=== PATIENT | male | born 1950 | race Caucasian/White ===

== ENCOUNTER 2018-04-24 13:43 | Outpatient (RCR) | payer MEDICARE, OTHER ==
[2018-01-30] MEDS: HEPARIN FLSH (PORT) 500 UN/5ML IVP PRN (11:19)
[2018-02-21 14:09] VITALS: BP 134/78
[2018-02-21 15:04] LABS: PLATELET COUNT, AUTOMATED 206 K/uL (150-450)
--- NOTE | 2018-02-22 17:03 | ONCOLOGY FOLLOW UP NOTE ---
EVENT DATE: February 21, 2018 CHIEF COMPLAINT/REASON FOR VISIT Mr. 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 He is here for followup. HISTORY OF PRESENT ILLNESS Alex returns. We initially treated him with full-dose chemotherapy with 5FU and cisplatin, followed by weekly cisplatin with twice daily radiation. 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 He takes six to eight tablets of salt daily, and this seems to help him quite a bit. We treated all of his metastatic lesions in the spine with radiation therapy as well. This was an aggressive curative treatment approach for technically stage IV disease, but he remains in complete remission, and we are hopeful that we have cured him, although it is very difficult to give him an estimation of his prognosis. We continue to get an MRI of the brain and sinuses every six months and can transition from a PET scan to CT scan of the chest now that it has been two years. I would like to get an imaging every six months, however, through year five given his high risk for relapse. No new symptoms. No fevers, chills, signs of infection, any concerning lumps or bumps, or other issues today. PAST MEDICAL/SURGICAL HISTORY No chronic medical conditions. He had a benign testicular growth removed in 1973. MEDICATIONS 1. Flomax 0.4 mg daily. 2. Finasteride 1 mg daily. 3. Vitamin B6 at 25 mg daily. 4. Calcium supplement. 5. Salt tablets 8 tablets daily for SIADH. MEDICATION ALLERGIES No known drug allergies. SOCIAL HISTORY The patient is and has presented with his today. FAMILY HISTORY Mother with breast cancer at age 77. REVIEW OF SYSTEMS CONSTITUTIONAL: No fever, chills, significant weight change. HEENT: No headache, visual changes, or sinus issues. CARDIOVASCULAR: No chest pain, dyspnea on exertion, or edema. RESPIRATORY: No shortness of breath, wheeze, or cough. GASTROINTESTINAL: No nausea or vomiting. GENITOURINARY: No dysuria or hematuria. He does have BPH. PSYCHIATRIC: No anxiety or depression. MUSCULOSKELETAL: No weakness or joint pain. IMMUNOLOGIC: No history of frequent infections. LYMPHATIC: No evidence of any lumps or bumps. SKIN: No concerning bruises or rashes. Remainder of 14 review of systems otherwise negative. PHYSICAL EXAMINATION VITAL SIGNS: Blood pressure 134/78, pulse 70, respiratory rate 16, temperature 98.2 Fahrenheit, oxygen saturation 93% on room air. Weight 83.1 kg. PAIN: Zero/10 FATIGUE: Zero/10 FALL RISK: Low GENERAL: Stable condition, resting comfortably in the chair. HEENT: Normocephalic, atraumatic. LYMPHATIC: No appreciable cervical, supraclavicular, or axillary adenopathy. ABDOMEN: Soft, nontender. No organomegaly or masses. Remainder of physical exam otherwise unremarkable. IMPRESSION (Import.) PLAN I reviewed the patient's studies from [place]. Mr. Asher is a pleasant, 67- year-old gentleman with the followin. Stage IV nasopharyngeal carcinoma, in complete remission. Plan to get CT of the chest and neck as well as an MRI of the brain and sinuses every six months. He will be due for it this fall, but I am happy to do it here or in [place] depending on where they would like to be at that time. 2. Severe BPH. Recommend he follow with his PCP or Urology. 3. 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 Continue salt tablets. I greatly appreciate the care of his team in [place] and their ongoing surveillance of the patient's survivorship. I answered all of his questions today. Billing Return visit level 4. Total time spent 30 minutes, consulting time 20. MTDD
[2018-03-23 10:03] VITALS: BP 122/78
[2018-03-23] MEDS: LIDOCAINE/SOD BICARB 8.4% SYR ID PRN (10:20)
[2018-03-23] MEDS: HEPARIN FLSH (PORT) 500 UN/5ML IVP PRN (10:20)
[2018-04-13 10:47] VITALS: BP 127/74
[2018-04-13 11:13] LABS: PLATELET COUNT, AUTOMATED 194 K/uL (150-450)
[2018-04-13] MEDS: HEPARIN FLSH (PORT) 500 UN/5ML IVP PRN (11:30)
[2018-04-13] MEDS: LIDOCAINE/SOD BICARB 8.4% SYR ID PRN (11:30)
[2018-04-18] MEDS: HEPARIN FLSH (PORT) 500 UN/5ML IVP PRN (08:20)
--- NOTE | 2018-04-18 10:58 | RADIOLOGY IMAGING REPORT ---
[place] [facility] [place] NAME: Samir Asher : 1950 MR: [id number] V: [id number] EXAM DATE: ORDERING PHYSICIAN: SILVANA COCHRAN TECHNOLOGIST: [place] [facility] [place]ir [place] : 1950 Visit/Account:[id number] Date of Sevice: 04/18/2018 EXAMINATION: Neck CT without and with contrast HISTORY: Malignancy TECHNIQUE: CT was obtained through the neck following IV contrast administration. Sagittal and co brianna reformatted images were generated. 75 mL of IV Isovue-370 injected. One of the following dose optimization techniques was utilized in the performance of this exam: autom ated exposure control; adjustment of the mA and/or kV according to patient size; or use of iterative reconstruction technique. Specific details can be referenced in the facility's radiology CT exam ope rational policy. COMPARISON: May 07, 2015 FINDINGS: Parotid/submandibular and thyroid glands: Punctate dystrophic calcification in the left lower thyroid lobe. Atrophic right parotid gland has decreased in size. Pharyngeal and retropharyngeal soft tissues: Mild new thickening of the right aspect of the epiglotti s, axial image 38. Slightly thickened right nasopharyngeal soft tissue similar to prior. No discret e mass in this area. Mild hypoattenuation in the right retropharyngeal space at the C1 level, axial image 24 is unchanged. Oral cavity and oyster harvester space soft tissues: Normal. Larynx/glottis and airway: Normal. Lymph nodes: Normal. Vessels: Bilateral carotid vasculature atherosclerotic plaque has increased compared to prior. Visualized orbits / brain: No significant finding. Upper chest: Right chest wall port with catheter extending into the superior vena cava. Mild emphyse ma noted. Bones/sinuses/mastoid air cells: No metastatic disease. Multilevel degenerative cervical foraminal n arrowing. No apparent osseous destruction. Sclerosis within the clivus is unchanged. IMPRESSION: 1. Unchanged slight right nasopharyngeal soft tissue thickening without discrete mass in this area. 2. No enlarged or suspicious appearing lymph nodes. 3. Mild new right epiglottis thickening which may reflect posttreatment-related change. Malignant t hickening is felt less likely. Follow-up CT may be warranted to ensure stability. Consider direct i nspection if there is concern for malignant thickening. Report Dictated By: Nadeem North MD at 04/18/2018 10:20 AM Report E-Signed By: Nadeem North MD at 04/18/2018 10:55 AM WSN:[id number]
--- NOTE | 2018-04-18 13:38 | RADIOLOGY IMAGING REPORT ---
FACILITY: [facility] PATIENT NAME: Samir Asher : 1950 MR: [id number] V: [id number] EXAM DATE: ORDERING PHYSICIAN: SILVANA COCHRAN TECHNOLOGIST: Location: [facility] Patient: Samir Asher : 1950 Visit/Account:[id number] Date of Sevice: 04/18/2018 ADDENDUM #1 Dose Lowering Technique One of the following dose optimization techniques was utilized in the performance of this exam: Autom ated exposure control; adjustment of the mA and/or kV according to the patient's size; or use of an i terative reconstruction technique. Specific details can be referenced in the facility's radiology C T exam operational policy. Report Dictated By: Cherise Matthews MD at 04/18/2018 4:34 PM Report E-Signed By: Cherise Matthews MD at 04/18/2018 4:34 PM ORIGINAL REPORT CHEST W W/O CONTRAST History: Nasopharyngeal carcinoma history ADDITIONAL CLINICAL HISTORY: None TECHNIQUE: Contiguous axial images were performed through the chest to the level of the adrenal gla nds with and without IV contrast. Coronal and sagittal reformatting was also performed. Contrast: 75 mL Isovue-370 COMPARISON STUDIES: PET/CT October 10, 2017. Lungs / Pleura: There are mild fibrotic changes pulmonary apices, right greater than left appear si milar to the prior study. Mild emphysematous changes seen throughout the lungs in addition to a bull a in the lateral left lower lobe. This no evidence of pulmonary nodules pulmonary infiltrates or ple ural effusions Mediastinum/nodes: No pathologic-appearing hilar or mediastinal adenopathy is seen Heart and vessels: There are at least moderate coronary artery calcifications present. There is an implanted right IJ port distal tip in superior vena cava. Musculoskeletal / Body wall: There is unilateral gynecomastia on the right that appear similar to t he prior study Spondylotic changes of the visualized cervical and thoracic spine Upper abdomen: Cholelithiasis although no evidence for ductal dilatation. Small hiatal hernia IMPRESSION: No evidence of pathologic-appearing adenopathy or pulmonary nodules Unilateral gynecomastia on the right similar to the prior study Cholelithiasis although no evidence of biliary ductal dilatation Small hiatal hernia Emphysematous changes but the lungs with left lower lobe bullous disease and mild biapical fibrotic c hange Report Dictated By: Cherise Matthews MD at 04/18/2018 12:11 PM Report E-Signed By: Cherise Matthews MD at 04/18/2018 1:34 PM WSN:[email or web address]
[~2018-04-24 13:43] MED LIST: ALTEPLASE RECOMB 2 MG VIAL IVP PRN; AMOX-556 PO; CALC-18 PO; CALC-515 PO; DEME300T9 PO; DEX4 PO; DEXTROSE 5%(*) 100 ML BAG 100 ML IVPB PRN; DUL100/5PT INH; FINA1TAB7 PO; FURO20TA19 PO; IOPAMIDOL 76% 75 ML INFUS BTL 75 ML ONE; LOR1 PO; NS(*) 0.9% 100 ML BAG 100 ML IVPB PRN; NS(*) 0.9% 500 ML BAG 500 ML IV PRN; OMEG500C7 PO; ONDA8TAB94 PO; OXYC-865 PO; POTA20LI10 PO; POTA20TA85 PO; PROC10TA4 PO; PYRI25TA18 PO; SALT TABLETS PO; TAMS0.4C25 PO; VITA-324 PO; WATER FOR INJ,STERILE 20 ML IVP PRN; [UNRECOGNIZED DRUG - CODE] PO
[2018-04-24 13:47] VITALS: BP 128/78
--- NOTE | 2018-04-25 20:21 | [facility] ONCOLOGY NOTE ---
EVENT DATE: April 24, 2018 CHIEF COMPLAINT/REASON FOR VISIT Mr. 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 HISTORY OF PRESENT ILLNESS Alex returns. We initially treated him with full-dose chemotherapy with 5FU and cisplatin, followed by weekly cisplatin with twice daily radiation. He has developed SIADH from the cisplatin, and this will likely remain a permanent issue. He takes six to eight tablets of salt daily, and he seems to be doing quite well with this. His most recent sodium was 133. We treated all of his metastatic lesions in spine with radiation therapy as well. This was an aggressive curative treatment approach for technically stage IV disease, but he remains in complete remission, and we are hopeful that we have cured him, although it is very difficult to give him an accurate estimation of his prognosis. We would like to get imaging of the brain, sinuses, and chest at a minimum every six months through year five. His imaging today looks well, although we did not get a MRI of the brain. Thankfully, he has no symptoms elsewhere in the body or anywhere that would warrant additional imaging. We were unable to get PET scans in surveillance. No new symptoms. No fevers, chills, signs of infection, concerning lumps or bumps, sinus drainage of concern, or any other symptoms of concern. Typically, we would be most concerned with local recurrence, and none of the areas of prior disease have any signs of concern. He is his usual happy self with his usual sense of humor today. PAST MEDICAL/SURGICAL HISTORY No chronic medical conditions. He had a benign testicular growth removed in 1973. MEDICATIONS 1. Flomax 0.4 mg daily. 2. Finasteride 1 mg daily. 3. Vitamin B6 at 25 mg daily. 4. Calcium supplement. 5. Salt tablets 8 tablets daily for SIADH. MEDICATION ALLERGIES No known drug allergies. SOCIAL HISTORY The patient is and has presented with his today. FAMILY HISTORY Mother with breast cancer at age 77. REVIEW OF SYSTEMS CONSTITUTIONAL: No fever, chills, significant weight change. HEENT: No headache, visual changes, or sinus issues. CARDIOVASCULAR: No chest pain, dyspnea on exertion, or edema. RESPIRATORY: No shortness of breath, wheeze, or cough. GASTROINTESTINAL: No nausea or vomiting. GENITOURINARY: No dysuria or hematuria. He does have BPH. PSYCHIATRIC: No anxiety or depression. MUSCULOSKELETAL: No weakness or joint pain. IMMUNOLOGIC: No history of frequent infections. LYMPHATIC: No evidence of any lumps or bumps. SKIN: No concerning bruises or rashes. Remainder of 14 review of systems otherwise negative. PHYSICAL EXAMINATION VITAL SIGNS: Blood pressure 128/78, pulse 66, respiratory rate 16, temperature 97.5 Fahrenheit, oxygen saturation 95% on room air. Weight 83.3 kg. Pain zero/10. Fatigue aero/10. GENERAL: Stable condition, resting comfortably in the chair. HEENT: Normocephalic, atraumatic. LYMPHATIC: No appreciable cervical, supraclavicular, or axillary adenopathy. EXTREMITIES: No clubbing, cyanosis, or edema. ABDOMEN: Soft, nontender. No organomegaly. Remainder of physical exam otherwise unremarkable. IMPRESSION/PLAN Mr. Asher is a very pleasant, 68-year-old gentleman with the followin. Stage IV nasopharyngeal carcinoma, in complete remission. Plan to get a CT of the chest and neck as well as an MRI of the brain every six months. That would be due in early October in [place] around that time. They plan to spend the majority of the year in [place], and he is established with a care team there. 2. History of severe benign prostatic hypertrophy. I recommend that he follow with his PCP or Urology regarding this. 3. 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 Continue the salt tablets. I greatly appreciate the care team in [place] for their ongoing surveillance during his survivorship. I answered all of his questions today. BILLING Return visit level 4. Total time spent 30 minutes, consulting time 20. MTDD
== END 2018-04-27 ==
LOC: ONC 13:43
PROVIDERS: ATTEND Internal Medicine
DX: C11.8 Malignant neoplasm of overlapping sites of nasopharynx (principal); N62 Hypertrophy of breast; K80.20 Calculus of gallbladder without cholecystitis without obstruction; K44.9 Diaphragmatic hernia without obstruction or gangrene; J43.9 Emphysema, unspecified
CPT/HCPCS: 36591; 70492; 71270; 85025; 96374; 96523; G0463; J1642; J2997; Q9967; 82040; 82247; 82310; 82374; 82435; 82565; 82947; 84075; 84132; 84155; 84295; 84450; 84460; 84520; 99212

== ENCOUNTER 2019-03-20 10:44 | Outpatient (RCR) | payer MEDICARE, OTHER ==
[2019-02-14 13:32] VITALS: BP 118/85
[2019-02-14] MEDS: HEPARIN FLSH (PORT) 500 UN/5ML IVP PRN (13:43)
[~2019-03-20 10:44] MED LIST changes: -IOPAMIDOL 76% 75 ML INFUS BTL 75 ML ONE; +LIDOCAINE/SOD BICARB 8.4% SYR ID PRN; +NS(*) 0.9% 250 ML BAG 250 ML IVPB PRN; -NS(*) 0.9% 500 ML BAG 500 ML IV PRN
[2019-03-20] MEDS: HEPARIN FLSH (PORT) 500 UN/5ML IVP PRN (11:10)
[2019-03-20 12:00] LABS: PLATELET COUNT, AUTOMATED 232 K/uL (150-450)
== END 2019-03-29 ==
LOC: SPU 10:44
PROVIDERS: ATTEND Internal Medicine
DX: C14.0 Malignant neoplasm of pharynx, unspecified (principal)
CPT/HCPCS: 36591; 85025; 96523; J1642; 82040; 82247; 82310; 82374; 82435; 82565; 82947; 84075; 84132; 84155; 84295; 84450; 84460; 84520